=== PATIENT | male | born 1995 | race Caucasian/White ===

== ENCOUNTER 2016-11-09 12:59 | Day surgery (SDC) | payer BC ==
[2016-11-03 13:49] VITALS: BMI 21.5
[~2016-11-09 12:59] MED LIST: LACTATED RINGERS 1,000 ML IV SCH; LIDOCAINE 1% 20 ML VIAL (10MG/ML) FOR IV START INTRADERMA PRN
[2016-11-09 13:34] VITALS: TEMP 98.2
[2016-11-09] MEDS ORDERED: MIDAZOLAM 2 MG/2 ML VIAL ONE (14:16)
[2016-11-09] MEDS ORDERED: fentaNYL (PF) 50 MCG/ML 2 ML AMP ONE (14:16)
[2016-11-09] MEDS ORDERED: PROPOFOL 10 MG/ML 20 ML VIAL IV ONE (14:16)
--- NOTE | 2016-11-09 14:21 | P.GSHP ---
History of Present Illness H&P Date: 11/09/16 Chief Complaint: Epigastric dull pain, peptic ulcer disease This a 21-year-old male who has had complaints of epigastric abdominal pain. Patient also has had GERD. He presents today for EGD to evaluate for GERD and peptic ulcer disease. - Constitutional Constitutional: Reports as per HPI Past Medical History Past Medical History: Asthma, GERD/Reflux Additional Past Medical History / Comment(s): ENVIRONMENTAL ALLERGIES History of Any Multi-Drug Resistant Organisms: None Reported Past Surgical History: Adenoidectomy, Cholecystectomy, Hernia Repair, Tonsillectomy Additional Past Surgical History / Comment(s): HERNIA X 2. SINUS SX Past Anesthesia/Blood Transfusion Reactions: Postoperative Nausea & Vomiting ( PONV) Past Psychological History: Anxiety Smoking Status: Never smoker Past Alcohol Use History: Occasional Past Drug Use History: Marijuana Additional Drug Use History / Comment(s): USES MEDICAL MARIJUANA DAILY FOR ANXIETY-INSTRUCTED TO REFRAIN FROM USE FOR AT LEAST 24 HOURS PRIOR TO PROCEDURE - Past Family History Mother Family Medical History: No Reported History Medications and Allergies Home Medications Medication Instructions Recorded Confirmed Type Albuterol Inhaler [Ventolin Hfa 1 - 2 puff INHALATION Q6HR PRN 11/03/16 History Inhaler] Loratadine [Claritin] 10 mg PO DAILY 11/03/16 11/09/16 History Ranitidine HCl [Zantac] 150 mg PO BID 11/03/16 11/09/16 History Allergies Allergy/AdvReac Type Severity Reaction Status Date / Time No Known Allergies Allergy Verified 11/09/16 13:29 Surgical - Exam Vital Signs Temp Pulse BP Pulse Ox 98.2 F 52 L 110/68 100 11/09/16 13:31 11/09/16 13:31 11/09/16 13:31 11/09/16 13:31 - General well developed, no distress - Eyes PERRL - ENT normal pinna - Neck no masses - Respiratory normal expansion - Cardiovascular Rhythm: regular - Abdomen Abdomen: soft, non tender Assessment and Plan Plan: GERD, peptic ulcer disease. Patient will undergo EGD today.
--- NOTE | 2016-11-09 14:29 | P.OP ---
Date of Procedure: 11/09/16 Preoperative Diagnosis: GERD Postoperative Diagnosis: GERD Procedure(s) Performed: EGD Anesthesia: MAC Surgeon: Monroe Nuñez Pathology: other (Antrum, esophagus) Condition: stable Disposition: PACU Description of Procedure: Patient's placed on the endoscopy table in the lateral position. He received IV sedation. The gastroscope some placed oropharynx and passed into the esophagus and into the stomach. Scope was then placed through the pylorus. The first and second portion of the duodenum appeared normal. The scope was then brought back the antrum and this appeared mildly inflamed. A biopsy antrum performed. The scope was then retroflexed in the remainder of the stomach appeared normal. There was a sliding hiatal hernia seen. The GE junction was at 38 cm. The distal esophagus appeared inflamed a biopsy was performed. The proximal esophagus this appeared Normal. Scope was withdrawn for patient.
[2016-11-09 14:37] VITALS: RESP 18
[2016-11-09 15:06] VITALS: BP 107/75; PULSE 60
== END 2016-11-09 15:14 | disposition home or self-care (01) ==
LOC: ORWHC2ENDO 12:59
PROVIDERS: ATTEND Surgery
DX: K21.0 Gastro-esophageal reflux disease with esophagitis (principal); K29.50 Unspecified chronic gastritis without bleeding; K44.9 Diaphragmatic hernia without obstruction or gangrene; K27.9 Peptic ulcer, site unspecified, unspecified as acute or chronic, without hemorrhage or perforation; J45.909 Unspecified asthma, uncomplicated; F41.9 Anxiety disorder, unspecified; Z79.899 Other long term (current) drug therapy
CPT/HCPCS: 88305; 88342; 43239; J2250; J3010; J2704

== ENCOUNTER 2016-12-15 07:45 | Inpatient (IN) | payer BC ==
[2016-12-30] MEDS ORDERED: HEPARIN SODIUM,PORCINE 5,000 UNIT/ML 1 ML VIAL SQ ONE (05:00)
[2016-12-30] MEDS ORDERED: ceFAZolin 2 GM in SODIUM CHLORIDE 0.9% 100 ML IVPB ONE (05:00)
[2016-12-30] MEDS ORDERED: ONDANSETRON 4 MG/2 ML VIAL IVP ONE (05:16)
[2016-12-30] MEDS ORDERED: HYDROmorphone 1 MG/ML 1 ML SYRINGE IVP PRN (05:16)
[2016-12-30] MEDS ORDERED: DEXAMETHASONE SOD PHOSPHATE 10 MG/ML 1 ML VIAL IV ONE (05:16)
[2016-12-30] MEDS: LACTATED RINGERS 1,000 ML IV SCH (06:42)
[2016-12-30] MEDS ORDERED: SCOPOLAMINE 1.5MG/72HR PATCH TRANSDERM ONE (07:32)
--- NOTE | 2016-12-30 07:46 | P.GSHP ---
History of Present Illness H&P Date: 12/30/16 Chief Complaint: GERD This a 21-year-old male referred from Dr. gandhi. The patient has had long- standing problems with reflux esophagitis. The patient underwent recent EGD is found have evidence of esophagitis. Patient has been well informed on the procedure of laparoscopic Sanna fundoplication. The patient is aware the risk of the conversion to the open procedure, risk of injury to the stomach, liver and spleen. The patient is also a risk of recurrent GERD and dysphagia symptoms. The patient understands there is a postoperative diet of full liquids for 2 weeks after surgery. - Constitutional Constitutional: Reports as per HPI Past Medical History Past Medical History: Asthma, GERD/Reflux Additional Past Medical History / Comment(s): ENVIRONMENTAL ALLERGIES. HIATAL HERNIA. History of Any Multi-Drug Resistant Organisms: None Reported Past Surgical History: Adenoidectomy, Cholecystectomy, Hernia Repair, Tonsillectomy Additional Past Surgical History / Comment(s): HERNIA X 2. EGD 10/2016. SINUS SX Past Anesthesia/Blood Transfusion Reactions: Family History of Problems w/ Anesthesia, Postoperative Nausea & Vomiting (PONV) Additional Past Anesthesia/Blood Transfusion Reaction / Comment(s): BROTHER HAS PONV. Past Psychological History: Anxiety, Panic Disorder Additional Psychological History / Comment(s): HX PANIC ATTACKS. Smoking Status: Former smoker Past Alcohol Use History: Occasional Additional Past Alcohol Use History / Comment(s): SMOKED 2-3 YEARS SOCIALLY. Past Drug Use History: Marijuana Additional Drug Use History / Comment(s): USES MEDICAL MARIJUANA DAILY FOR ANXIETY-INSTRUCTED TO REFRAIN FROM USE FOR AT LEAST 24 HOURS PRIOR TO PROCEDURE - Past Family History Mother Family Medical History: No Reported History Medications and Allergies Home Medications Medication Instructions Recorded Confirmed Type Albuterol Inhaler [Ventolin Hfa 1 - 2 puff INHALATION Q6HR PRN 11/03/16 History Inhaler] Loratadine [Claritin] 10 mg PO DAILY 11/03/16 12/27/16 History Ranitidine HCl [Zantac] 150 mg PO BID 11/03/16 12/27/16 History Allergies Allergy/AdvReac Type Severity Reaction Status Date / Time No Known Allergies Allergy Verified 12/27/16 12:35 Surgical - Exam Vital Signs Temp Pulse Resp BP Pulse Ox 96.8 F L 63 16 124/71 99 06/02/17 06:39 12/30/16 06:39 12/30/16 06:39 12/30/16 06:39 12/30/16 06:39 - General well developed, no distress - Eyes PERRL - ENT normal pinna - Neck no masses - Respiratory normal expansion - Cardiovascular Rhythm: regular - Abdomen Abdomen: soft, non tender Assessment and Plan Plan: GERD. We'll perform laparoscopic Sanna fundal plication.
[2016-12-30] MEDS ORDERED: fentaNYL (PF) 50 MCG/ML 2 ML AMP ONE (07:49)
[2016-12-30] MEDS ORDERED: ROCURONIUM BROMIDE 10 MG/ML 10 ML VIAL IV ONE (07:49)
[2016-12-30] MEDS ORDERED: LIDOCAINE 1% INJ 10MG/ML (20 ML MDV) ONE (07:49)
[2016-12-30] MEDS ORDERED: MIDAZOLAM 2 MG/2 ML VIAL ONE (07:49)
[2016-12-30] MEDS ORDERED: SUCCINYLCHOLINE CHLORIDE VIAL 200 MG/10 ML VIAL IV ONE (07:49)
[2016-12-30] MEDS ORDERED: PROPOFOL 10 MG/ML 20 ML VIAL IV ONE (07:49)
[2016-12-30] MEDS ORDERED: GLYCOPYRROLATE 0.2 MG/ML 2 ML VIAL ONE (07:49)
[2016-12-30] MEDS ORDERED: ALBUTEROL INHALER 60 PUFF/8 GM INHALER INHALATION ONE (07:49)
[2016-12-30] MEDS ORDERED: NEOSTIGMINE 1 MG/ML 10 ML VIAL ONE (07:49)
[2016-12-30] MEDS ORDERED: BUPIVACAIN-EPI 0.25%-1:200,000 30 ML VIAL SQ ONE (08:00)
[2016-12-30] MEDS ORDERED: ONDANSETRON 4 MG/2 ML VIAL IVP PRN (08:37)
--- NOTE | 2016-12-30 08:37 | P.OP ---
Date of Procedure: 12/30/16 Preoperative Diagnosis: GERD Postoperative Diagnosis: GERD Procedure(s) Performed: Laparoscopic Sanna fundoplication Implants: Anesthesia: MANUEL Surgeon: Monroe Nuñez Estimated Blood Loss (ml): 5 Pathology: none sent Condition: stable Disposition: PACU Indications for Procedure: Operative Findings: Description of Procedure: The patient was placed on the operating table in the supine position. The patient received general anesthesia. And was placed in dorsal lithotomy position. The patient was prepped and draped in the usual sterile fashion. The skin incision sites were anesthetized with 1% local Xylocaine. The skin was incised in the left periumbilical area and then using a blade less 5 mm trocar under direct visualization panel cavity was entered. After adequate insufflation the laparoscope was then placed into the peritoneal cavity. Next a 5 mm trochars placed in the right epigastric position. Another 5 millimeter trocar the right lateral position. Another 5 millimeter trocar in the left lateral position a 5 mm trocar is placed in the left epigastric position. And then the initial 5 mm trocar was exchanged for a 10 mm trocar. The left lateral lobe liver was retracted. The hernia was seen. The crural defect was then dissected using the Harmonic scissors device. A 360 crural dissection was performed the esophagus stomach was reduced back into the peritoneal Cavity. The crural defect was then closed using 2-0 Ethibond suture. Next the fundus of the stomach was mobilized using the [place] scissors device. and then a 58-[place] bougie dilator was placed oropharynx passed into the esophagus and stomach the fundal plication wrap was then performed by grasping the fundus posteriorly and bringing it around the esophagus and stomach fundoplication was then performed using 2-0 Ethibond suture. Care was taken that the fundal location rested over top of the intra-abdominal esophagus. There was no injury seen to the stomach or esophagus. The dilator was then withdrawn. The abdomen was irrigated there is no bleeding seen. The trochars were then withdrawn and then skin incision sites were closed using 3-0 Monocryl suture Steri-Strips are applied. Patient thought procedure well and sent to recovery room in stable condition.
[2016-12-30] MEDS: MEPERIDINE 50 MG/ML SYRINGE IVP ONE ×2 (08:50→08:55)
[2016-12-30] MEDS: ENOXAPARIN 40 MG/0.4 ML SYRINGE SQ SCH (10:02)
[2016-12-30] MEDS: D5-0.45% NACL WITH KCL 20MEQ/L 1,000 ML IV SCH ×3 (10:02→21:45)
[2016-12-30] MEDS: HYDROmorphone 1 MG/ML 1 ML SYRINGE IVP PRN ×2 (10:41→21:50)
--- NOTE | 2016-12-30 12:27 | FL ---
Single contrast esophagram EXAMINATION TYPE: FL esophagus cervic/pharynx DATE OF EXAM: 12/30/2016 12:19 PM COMPARISON: NONE CLINICAL HISTORY: Status post Yordan fundoplication The patient ingested contrast without difficulty or delay. Noted are changes of Yordan fundoplicatio n. There is no evidence for leak or obstruction. No residual contrast within the distal esophagus. IMPRESSION: Post-surgical change of Yordan fundoplication without evidence for leak or obstruction.
[2016-12-30 19:25] VITALS: RESP 16
[2016-12-31] MEDS: LACTATED RINGERS 1,000 ML IV SCH (00:05)
[2016-12-31] MEDS: D5-0.45% NACL WITH KCL 20MEQ/L 1,000 ML IV SCH (05:01)
[2016-12-31] MEDS: HYDROmorphone 1 MG/ML 1 ML SYRINGE IVP PRN (06:59)
[2016-12-31 08:15] VITALS: BP 120/58; PULSE 60; TEMP 97.9
[2016-12-31] MEDS: ENOXAPARIN 40 MG/0.4 ML SYRINGE SQ SCH (09:44)
--- NOTE | 2016-12-31 11:41 | P.DS ---
Providers Date of admission: 12/30/16 06:28 Expected date of discharge: 12/31/16 Attending physician: Monroe Nuñez Primary care physician: [facility] Course: The patient presented for laproscopic Sanna fundoplication. Postoperatively his pain was well controlled. He had a unremarkable barium swallow. Postop day 1 he was found to be stable for discharge Procedures: Laparoscopic Sanna fundoplication Patient Condition at Discharge: Good Plan - Discharge Summary New Discharge Prescriptions: New Docusate [Colace] 100 mg PO BID #20 capsule HYDROcodone/APAP 7.5-325MG [[place] 7.5] 1 each PO Q4H PRN #60 tab PRN Reason: Pain No Action Ranitidine HCl [Zantac] 150 mg PO BID Albuterol Inhaler [Ventolin Hfa Inhaler] 1 - 2 puff INHALATION RT-Q6H PRN PRN Reason: ASTHMA Loratadine [Claritin] 10 mg PO DAILY Discharge Medication List Albuterol Inhaler [Ventolin Hfa Inhaler] 1 - 2 puff INHALATION RT-Q6H PRN [History] Loratadine [Claritin] 10 mg PO DAILY 11/03/16 [History] Ranitidine HCl [Zantac] 150 mg PO BID 11/03/16 [History] Docusate [Colace] 100 mg PO BID #20 capsule 12/30/16 [Rx] HYDROcodone/APAP 7.5-325MG [[place] 7.5] 1 each PO Q4H PRN #60 tab 12/30/16 [Rx] Follow up Appointment(s)/Referral(s): Monroe Nuñez MD [STAFF PHYSICIAN] - 2 Weeks (Office closed at time of discharge. Patient to call and schedule follow up appointment.) Activity/Diet/Wound Care/Special Instructions: Full liquid diet for 2 weeks Discharge Disposition: HOME SELF-CARE
== END 2016-12-31 12:40 | disposition home or self-care (01) | DRG 328 ==
LOC: 2ORWHC 12-30 06:28 → 3SUR 12-30 09:25
PROVIDERS: ADMIT Surgery; ATTEND Surgery
PROC: 0DV44ZZ Restriction of Esophagogastric Junction, Percutaneous Endoscopic Approach (ICD-10-PCS; principal; 2016-12-30 07:40)
DX: K21.0 Gastro-esophageal reflux disease with esophagitis (principal); R13.10 Dysphagia, unspecified; J45.909 Unspecified asthma, uncomplicated; K44.9 Diaphragmatic hernia without obstruction or gangrene; F12.90 Cannabis use, unspecified, uncomplicated; F41.9 Anxiety disorder, unspecified; F41.0 Panic disorder [episodic paroxysmal anxiety]; Z87.891 Personal history of nicotine dependence; Z90.49 Acquired absence of other specified parts of digestive tract; Z79.899 Other long term (current) drug therapy; Z79.51 Long term (current) use of inhaled steroids
CPT/HCPCS: 74210

== ENCOUNTER → 2017-12-08 | Outpatient (CLI) | payer BC ==
--- NOTE | 2017-12-14 13:39 | FL ---
ESOPHOGRAM. HISTORY: Dysphagia. There is been prior hiatal hernia repair. COMPARISON: 12/30/2016 4oz EZHD,2oz EZ Paque, 1pkg EZGas. 42sec fluoro time Esophagram was performed per the air contrast technique. The patient swallowed barium and effervesce nt crystals without difficulty or delay. Esophageal peristalsis and motility appear to be within normal limits. There is no evidence for filling defect, mass or diverticulum. There is no evidence for recurrent hiatal hernia. As the operative changes noted of prior a hiatal he rnia repair. Subsequently single contrast cervical esophagram was performed which fails demonstrate evidence for a spiration penetration or mass. IMPRESSION: 1. Hiatal hernia repair without recurrent hiatal hernia at this time. 2. Otherwise unremarkable examination.
== END | disposition home or self-care (01) ==
LOC: RADFLMAIN 10:46
PROVIDERS: ATTEND Surgery
DX: R13.10 Dysphagia, unspecified (principal)
CPT/HCPCS: 74220

== ENCOUNTER → 2025-02-07 | Outpatient (CLI) | payer OTHER ==
--- NOTE | 2025-02-07 14:22 | US ---
EXAMINATION TYPE: US scrotum with doppler. DATE OF EXAM: 02/07/2025 COMPARISON: NONE CLINICAL INDICATION: Male, 29 years old with history of N50.812 LEFT TESTICULAR PAIN; Patient stated he use to punch testicles about 15 years ago repeatedly. Hx bilateral inguinal hernias at ages 1 and 8. Left groin/testicle pain x 1 month. TECHNIQUE: Grayscale, color Doppler and spectral Doppler imaging of the scrotum. FINDINGS: EXAM MEASUREMENTS: TESTICLES: Right Testicle: 4.8 x 2.2 x 3.2 cm Left Testicle: 4.2 x 2.0 x 3.5 cm EPIDIDYMIS HEAD: Right Epididymis: 1.0 x 1.3 x 1.1 cm Left Epididymis: 1.0 x 1.1 x 1.6 cm Doppler performed to assess for testicular vascularity; good bilateral color flow and spectral wavefo lito are seen. There is no evidence of testicular torsion. Presence of hydroceles: Left Presence of varicoceles: Left IMPRESSION: 1. No evidence for acute process. 2. No evidence for intratesticular mass. 3. Appropriate arterial and venous spectral waveforms to the testes. [facility], , 02/07/2025 2:20 PM
== END | disposition home or self-care (01) ==
LOC: RADUSWWP 13:35
PROVIDERS: ATTEND Family Medicine
DX: N50.812 Left testicular pain (principal)
CPT/HCPCS: 76870; 93975